=== PATIENT | male | born 1970 | race Caucasian/White ===

== ENCOUNTER 2018-10-26 13:06 | Observation (INO) ==
[2018-10-26] MEDS ORDERED: GLUCAGON SUBQ ONE ×2 (13:13→15:28)
--- NOTE | 2018-10-26 13:21 | PROVIDER DOCUMENTATION ---
HPI-General Adult - General Chief Complaint: Foreign Body/Throat Stated Complaint: FOREIGN OBJECT THROAT Time Seen by Provider: 10/26/18 13:12 Source: patient Allergies/Adverse Reactions: Patient Allergies Allergy/AdvReac Type Severity Reaction Status Date / Time No Known Allergies Allergy Verified 10/26/18 13:43 Home Medications: Home Medication List Medication Instructions Recorded Confirmed Last Taken Type NK [No Home Medications] 10/26/18 10/26/18 Unknown History - History of Present Illness -Gen Adult Nature of Presenting Problems: 48yom present to ER with c/o possible food bolus. Pt states he was eating a steak about 15 min [employer] and felt it get stuck in his throat. Pt spitting at bedside. States he has vomited. Denies abd pain or SOB. Location of Pain/Injury: reports: none Onset/Duration: reports: 1/2 hour ago Timing: reports: still present Associated Symptoms: reports: nausea, vomiting. denies: chest pain, diaphoresis, fever/chills, shortness of breath Review of Systems - Adult - REVIEW OF SYSTEMS - ADULT Constitutional: reports: no symptoms reported Eyes: reports: no symptoms reported Ears, Nose, Mouth & Throat: reports: no symptoms reported Cardiovascular: reports: no symptoms reported. denies: chest pain Respiratory: reports: no symptoms reported. denies: cough, shortness of breath Gastrointestinal: reports: see HPI, difficulty swallowing, nausea, vomiting Genitourinary: reports: no symptoms reported Musculoskeletal: reports: no symptoms reported Integumentary: reports: no symptoms reported Neurological: reports: no symptoms reported Psychiatric: reports: no symptoms reported Endocrine: reports: no symptoms reported Hematologic/Lymphatic: reports: no symptoms reported Allergic/Immunologic: reports: no symptoms reported All Other Systems: Reviewed and Negative Past History - Adult - PAST MEDICAL HISTORY-ADULT Review of Records: reports: Old Records Reviewed, Nursing Assessment Review, Medications Reviewed, Social history reviewed & non-contributory. Major Childhood Illnesses: reports: denies history Cardiovascular: reports: denies history Respiratory: reports: denies history Gastrointestinal: reports: denies history Obstetrical/Gynecological: reports: denies history Genitourinary: reports: denies history Musculoskeletal: reports: denies history Neurological: reports: denies history Endocrine/Immune: reports: denies history Other Conditions: reports: denies history Physical Exam-General - PHYSICAL EXAM-ADULT Initial Vital Signs Reviewed: Yes - CONSTITUTIONAL General Appearance: appears well, alert, no apparent distress - HEAD, EARS, NOSE, MOUTH & THROAT HENMT: moist mucous membranes, normal ENT inspection, pharynx normal. negative: angioedema - NECK Neck: full range of motion, supple, normal inspection - RESPIRATORY Respiratory: lungs clear, normal breath sounds, no respiratory distress, no accessory muscle use. negative: wheezing, retractions - CARDIOVASCULAR Cardiovascular: regular rate, rhythm - GASTROINTESTINAL (ABDOMEN) Abdominal Exam: normal bowel sounds, non tender, soft - MUSCULOSKELETAL Back Exam: normal inspection Extremity: normal range of motion, normal gait, normal inspection - SKIN Integumentary: normal color, warm/dry. negative: diaphoresis, jaundice - NEUROLOGIC Neurologic: grossly normal, no motor/sensory deficits - PSYCHIATRIC Psych/Mental Status: oriented x 3, anxious Progress - PLAN OF CARE/RESULTS Progress/Plan/Lab Results: Vital Signs - 8 hr 10/26/18 13:09 Temperature 99.0 F Pulse Rate 51 L Respiratory Rate 20 Blood Pressure 150/78 O2 Sat by Pulse Oximetry 98 Orders Category Date Time Status Glucagon Med 10/26/18 13:13 Discontinued 1 mg SUBQ NOW ONE - REASSESSMENT Reassessment #1 Time Reassessed: 14:10 (pt states he feels like the food bolus may have went down some but can still feel it. Denies SOB. Made aware will allow more time and try PO challenge, verbalized understanding) Reassessment #2 Time Reassessed: 15:06 (pt offered water, pt unable to swallow the water, vomits back up. Will page GI for consult) Reassessment #3 Time Reassessed: 16:59 (no relief from food bolus, will call hospitalist for admission) - XRAY 1 XRAY Study: Chest Impression: See EMR Report (FINDINGS: The upper airway appears to be patent. The lungs are grossly clear. There is no discrete pleural fluid collection or pneumothorax. The cardiomediastinal silhouette and central vasculature are grossly unremarkable. IMPRESSION: No evidence of acute pathology by plain radiograph. Electronically signed by Thiago Javier 10/26/2018 3:07 PM) - CONSULTS/PCP/HOSPITALIST Notification #1 *Consult/PCP/Hospitalist*: Boogie Time Discussed: 15:29 (instructs to give pt IV fluids and IV protonix, after getting 500mL give another dose of glucagon and nitro SL. If pt unable to pass, admit to [facility]. If pt passes, have pt f/u in his office tomorrow for esophageal stretch on Saturday) #2 Consult: Dr Chavira, hospitalist Time Discussed: 17:04 (admit to [facility] ) Consult Disposition: Admit Departure - Departure Date of Disposition Decision: 10/26/18 Time of Disposition Decision: 17:05 DIAGNOSIS: Esophageal obstruction due to food impaction Disposition: ADMITTED INPATIENT 09 Certified Medical Emergency: Emergent Condition: Stable Referrals and Follow-Ups: Mukesh Faria MD [Primary Care Provider] - - Critical Care Note This patient required my direct & personal management of CC.: No Attestation - Physician/ NEFTALI Attestation Patient care was provided by Advanced Practice Provider:: Yes Advanced Practice Provider:: Cecy March Advanced Practice Provider documentation review:: The Mid-level provider documentation, treatment plan and medical decision making was reviewed by the physician who agrees with all treatment and medical decision making by the MLP. The physician spent face to face time with patient:: No Advanced Practice Provider documentation review:: Supervising physician onsite and consulted in the evaluation and care of this patient. The physician did not have a face to face encounter with the patient.
[2018-10-26] MEDS ORDERED: DEMEROL IM ONE (13:27)
--- NOTE | 2018-10-26 15:09 | Diag Imaging Result Doc PS360 ---
EXAM: CHEST-PORTABLE INDICATION: possible food bolus TECHNIQUE: One view COMPARISON: 08/21/2013 FINDINGS: The upper airway appears to be patent. The lungs are grossly clear. There is no discrete pleural fluid collection or pneumothorax. The cardiomediastinal silhouette and central vasculature are grossly unremarkable. IMPRESSION: No evidence of acute pathology by plain radiograph. Electronically signed by Thiago Javier 10/26/2018 3:07 PM
[2018-10-26] MEDS ORDERED: PROTONIX IV ONE (15:25)
[2018-10-26] MEDS ORDERED: NS 1,000 ML IV ONE (15:25)
[2018-10-26] MEDS ORDERED: SODIUM CHLORIDE 0.9% INJ ONE ×2 (15:28→19:50)
[2018-10-26] MEDS ORDERED: NITROGLYCERIN SL ONE (15:30)
[2018-10-26] MEDS ORDERED: PROTONIX IV SCH (19:50)
[2018-10-26] MEDS ORDERED: ZOFRAN IV PRN (19:50)
[2018-10-26] MEDS ORDERED: MORPHINE IV PRN (19:50)
[2018-10-26 20:49] LABS: BASO# 0.04 X1000 (0.0-0.2); BASO% 0.3 % (0.0-0.8); EOS# 0.34 X1000 (0.0-0.7); EOS% 2.7 % (0.0-10.0); HEMOGLOBIN 13.2 g/dL (14.0-18.0); IMM GRAN# 0.03 X1000 (0.0-0.04); IMM GRAN% 0.2 % (0.0-0.5); LYMPH# 2.25 X1000 (1.2-3.4); LYMPH% 18.1 % (20.5-51.1); MCH 30.2 PG (27-31); MCHC 34.7 g/dL (33-37); MONO# 0.67 X1000 (0.11-0.59); MONO% 5.4 % (1.7-9.3); MPV 9.2 FL (7.4-10.4); NEUT# 9.12 X1000 (1.4-6.5); NEUT% 73.3 % (42.2-75.2); PLT 238 X1000 (130-400); RBC 4.37 XMIL (4.7-6.1); RDW 13.1 % (11.5-14.5); WBC 12.45 X1000 (4.8-10.8)
[2018-10-26 21:11] LABS: AGAP 11; ALB/GLOB RATIO 1.8; ALBUMIN 4.2 g/dL (3.5-5.0); ALKALINE PHOSPHATASE 71 U/L (32-122); BUN 15 mg/dL (8-22); CALCIUM 7.7 mg/dL (8.8-10.2); CHLORIDE 108 mmol/L (98-107); COSMO 284; CREATININE 0.9 mg/dL (0.7-1.2); ESTIMATED GFR > 60; GLUCOSE 93 mg/dL (70-104); GOT 27 U/L (10-34); GPT 30 U/L (10-44); POTASSIUM 3.8 mmol/L (3.5-5.1); SODIUM 142 mmol/L (136-145); TCO2 23 mmol/L (25-35); TOTAL BILIRUBIN 0.32 mg/dL (0.20-1.00); TOTAL PROTEIN 6.5 g/dL (6.3-8.3)
[2018-10-26] MEDS: NS 1,000 ML IV SCH (21:50)
--- NOTE | 2018-10-26 21:51 | HISTORY AND PHYSICAL ---
CHIEF COMPLAINT: Vomiting. HISTORY OF PRESENT ILLNESS: The patient is a 48-year-old male who presented to the hospital stating that he had eaten steak earlier and felt as though he has food got stuck. Started having intense pain, vomiting and spitting up at bedside. Stated he tried at home to drink liquids and could not each time it made him vomit. He called ambulance and brought him to the hospital. Just a very short period time ago he states that he had a very violent episode of vomiting and he actually feels a lot better. States he has taken a couple of sips of liquid and has been able keep that down without any pain. He does note this has been going on off and on for the past 3 months, seems to be getting worse. Does typically cough or have the sensation has got hung if he eats too fast. Never has issues with liquids. ALLERGIES: No known drug allergies. MEDICATIONS: No current medications. PAST MEDICAL HISTORY: He has no current active medical problems although he has been told in past that he had hypoglycemia and has been turned down for some type of insurance due to hyperglycemia. FAMILY HISTORY: Positive diabetes. SOCIAL HISTORY: He is . Does not smoke or drink on any regular basis. PHYSICAL: Temperature 99, pulse 51, respiratory 20, BP 150/78, saturating 98% on room air.General: Patient is awake, alert, currently in no respiratory distress, very pleasant to talk with sitting up in the bed. HEENT: Normocephalic. Neck: Supple. CV: Regular rate. Chest: Clear, nonlabored. Abdomen: Soft, nontender. Extremities: Moves all extremities. Neuro: No focal neurological changes. Skin: Warm, dry, no rashes. LABS: WBCs 12, glucose 93, calcium 7.7. Chest x-ray clear. ASSESSMENT: 1. Dysphagia with a likely food bolus. Although it appears though the food bolus has evacuated itself with his recent violent emesis episode. 2. Hyperglycemia although currently blood sugars are stable. PLAN: We are going to admit patient the hospital. Given that this has gone on several times and he had such a significant episode this time, do feel as though he is going to need to have an EGD. Will consult GI and will follow. Will admit him the hospital, IV fluids, pain control as needed. cc: Rudy Garner MD
[2018-10-27 07:23] LABS: AGAP 10; BUN 10 mg/dL (8-22); CALCIUM 7.9 mg/dL (8.8-10.2); CHLORIDE 111 mmol/L (98-107); COSMO 287; CREATININE 0.9 mg/dL (0.7-1.2); ESTIMATED GFR > 60; GLUCOSE 94 mg/dL (70-104); POTASSIUM 3.9 mmol/L (3.5-5.1); SODIUM 145 mmol/L (136-145); TCO2 24 mmol/L (25-35)
[2018-10-27 07:26] LABS: BASO# 0.05 X1000 (0.0-0.2); BASO% 0.6 % (0.0-0.8); EOS# 0.42 X1000 (0.0-0.7); EOS% 4.9 % (0.0-10.0); HEMATOCRIT 37.9 % (42.0-52.0); HEMOGLOBIN 12.7 g/dL (14.0-18.0); IMM GRAN# 0.02 X1000 (0.0-0.04); IMM GRAN% 0.2 % (0.0-0.5); LYMPH# 2.79 X1000 (1.2-3.4); LYMPH% 32.8 % (20.5-51.1); MCH 29.4 PG (27-31); MCHC 33.5 g/dL (33-37); MCV 87.7 FL (81-99); MONO# 0.53 X1000 (0.11-0.59); MONO% 6.2 % (1.7-9.3); MPV 9.6 FL (7.4-10.4); NEUT# 4.69 X1000 (1.4-6.5); NEUT% 55.3 % (42.2-75.2); PLT 230 X1000 (130-400); RBC 4.32 XMIL (4.7-6.1); RDW 13.1 % (11.5-14.5)
[2018-10-27] MEDS: NS 1,000 ML IV SCH (07:52)
[2018-10-27 08:19] LABS: INR 1.15; PROTIME 14.9 Seconds (11.0-16.0)
[2018-10-27 08:20] LABS: PTT 31.6 Seconds (22.3-41.8)
--- NOTE | 2018-10-27 08:27 | PROGRESS NOTE ---
DATE: 10/27/2018 SUBJECTIVE: This patient is resting comfortably in bed. Hopefully, he will have an endoscopy done today. Gastroenterology department has been consulted. OBJECTIVE: Vital Signs: Temperature 98 degrees, pulse 58, respiratory rate 20, blood pressure 111/67, oxygen saturation 99 on room air. HEENT: Head normocephalic. No trauma. PERRLA. Neck: Supple. No JVD. No masses. Central trachea. Chest: Clear to auscultation. No wheezing. No rales. Abdomen: Soft, nontender, nondistended. No hepatosplenomegaly. Extremities: No edema, no clubbing, no cyanosis. Neurological Examination: The patient is alert. He is oriented x3. No focal deficits. Laboratory: WBC 8.5, hemoglobin 12.7, hematocrit 37.9, platelets 230,000. Sodium 145, potassium 3.9, chloride 111, bicarbonate 24, BUN 10, creatinine 0.9, glucose 94, calcium 7.9. ASSESSMENT AND PLAN: 1. Dysphagia. Hopefully, he will had an esophagogastroduodenoscopy done today. He is nothing per oral. He has been placed on fluids. We will continue with the same management. As per the patient, this has been happening before but nothing like yesterday. I will wait for recommendations. 2. Apparently, he has been having episodes of hyperglycemia in the past. At this moment, the blood sugar is normal. cc: Yon Aggarwal MD
[2018-10-27] MEDS ORDERED: DIPRIVAN 1% ONE (08:44)
[2018-10-27] MEDS ORDERED: XYLOCAINE-MPF 2% ONE (08:45)
[2018-10-27] MEDS ORDERED: FENTANYL ONE (08:46)
--- NOTE | 2018-10-27 12:45 | ENDOSCOPY OPERATIVE NOTE ---
[facility] ENDOSCOPY OPERATIVE NOTE , PATIENT: Miguelito Christian ADMISSION DATE: MR#: [id number] : 1970 EGD PROCEDURE REPORT PROCEDURE DATE: 10/27/2018 SURGEON: Ajit Boogie MD STATUS: inpatient [employer]: Katarzyna Miller and Sudarshan Morales PREOPERATIVE DIAGNOSIS: The patient is a 48 yr old male here for an EGD due to dysphagia, pharyngeal -esophageal and foreign body removal from esophagus. PROCEDURE PERFORMED: EGD w/ biopsy MEDICATIONS: Per Anesthesia TOPICAL ANESTHETIC: none CONSENT: The patient understands the risks and benefits of the procedure and understands that these r isks include, but are not limited to: sedation, allergic reaction, infection, perforation and/or bleeding. Alternative means of evaluation and treatment include, among others: physical exam, x-rays, and/or surgical intervention. The patient elects to proceed with this endoscopic procedure. HISORY AND PHYSICAL: 10/27/2018 function. Hand hygiene and appropriate measures for infection prevention was taken. After the risks, benefits and alternatives of the procedure were thoroughly explained, Informed consent was verified, confirmed and timeout was successfully executed by the treatment team. The patient was anesthetized with topical anesthesia and the endoscope was introduced through the mouth and advanced to the second portion of the duodenum. Retroflexion wa s performed in the stomach and revealed no abnormalities. The gastroscope was then slowly withdrawn and removed. ESOPHAGUS: Esophagitis was found in the proximal esophagus and distal esophagus. Esophagitis was LA Class B: One or more mucosal breaks > 5mm, but without continuity across mucosal folds. A 2 cm hiatal hernia was no beverly. STOMACH: Mild non-erosive gastritis (inflammation) was found in the gastric body and gastric antrum. Multiple biopsies were performed using cold forceps. Sample sent for histology. DUODENUM: Mild duodenal inflammation was found in the duodenal bulb. The duodenal mucosa showed no abnormalities in the 2nd part of the duodenum. SPECIMENS REMOVED: Yes ADVERSE EVENTS: There were no complications. POSTOPERATIVE DIAGNOSIS: 1. Esophagitis in the proximal esophagus and distal esophagus 2. 2 cm hiatal hernia 3. Non-erosive gastritis (inflammation) was found in the gastric body and gastric antrum; multiple b iopsies were performed 4. Duodenal inflammation was found in the duodenal bulb 5. The duodenal mucosa showed no abnormalities in the 2nd part of the duodenum RECOMMENDATIONS: 1. Follow-up biopsy results in 2 weeks 2. Continue PPI daily - 30 mins before a meal 3. Liquid diet for 1 day and then advance to soft diet for now. RTC 2 weeks to schedule for Esophag eal dilation. 4. Begin an anti-reflux lifestyle: avoid acidic foods and drinks (like coffee and soda), do not lie down three hours after eating, elevate the head of your bed 6 to 9 inches, stop smokiing and reduce weight if needed. REPEAT EXAM: Ajit Boogie MD eSigned: Ajit Boogie MD 10/27/2018 1:44 PM cc: PATIENT NAME: Miguelito Christian MR#: [id number]
[2018-10-27] MEDS ORDERED: SODIUM CHLORIDE 0.9% 10 ML ONE (16:40)
[2018-10-27 17:48] VITALS: BP 122/73
--- NOTE | 2018-10-28 12:26 | DISCHARGE SUMMARY ---
ADMISSION DATE: 10/26/2018 DISCHARGE DATE: 10/27/2018 DISCHARGE DIAGNOSES: 1. Initially admitted due to food impaction/dysphagia. 2. Hyperglycemia although currently blood sugars were stable. 3. Esophagitis, gastritis, and duodenitis. HOSPITAL COURSE: A 48-year-old male admitted on 10/26/2018, and presented to the hospital stating that he had eaten steak earlier, and felt as though his food was stuck. He started having intensive pain, vomiting, and spitting up at the bedside. He tried to drink some liquids, and could not keep them down. He called the ambulance and brought him to the hospital. For a very short period of time during this admission, he states that he had a very violent episode of vomiting. He actually felt a lot better afterwards. He states that he took a couple of sips of liquid and has been able to keep that down without any pain, but he did notice that he has been having some kind of trouble swallowing going on for the past 3 months. He seems to be getting worse. Typically, he is coughing or having the sensation in his esophagus. He never had issues with liquids. He was admitted, and he was taking for endoscopy today that showed an esophagitis in the proximal esophagus and distal esophagus, a 2 cm hiatal hernia. Nonerosive gastritis was found in the gastric body and gastric antrum. Multiple biopsies were performed. Duodenal inflammation was found in the duodenal bulb, and the duodenal mucous showed no abnormalities in the second part of the duodenum. They have recommended to continue with PPIs 30 minutes before meals for 3 months. Also, they started a liquid diet for at least one day, and advanced to a soft diet for now. He needs to go back to the outpatient clinic to schedule for esophageal dilation. He needs to start anti reflux lifestyle. He needs to avoid acidic food and drinks like coffee and soda. Do not lie down 3 hours after eating and elevate the head of the bed at least 6 to 9 inches. He is not smoking, and he does not look overweight. After the procedure, he is feeling much better. He is tolerating p.o. He is ambulating. Family members at the bedside. He will be discharged today and follow up with Dr. Boogie in 2 weeks. PHYSICAL EXAMINATION: Temperature 97.6 degrees, pulse 50, respiratory rate 20, blood pressure 112/73, and oxygen saturation 98 percent on room air. HEENT: Head normocephalic. No trauma. PERRLA. Neck: Supple. No JVD. No masses. Central trachea. Chest: Clear to auscultation. No wheezing. No rales. Abdomen: Soft, nontender, and nondistended. No hepatosplenomegaly. Extremities: No edema. No clubbing. No cyanosis. Neurological: The patient is alert. He is oriented x3. No focal deficits. LABORATORY: WBC 8.5, hemoglobin 12.7, hematocrit 37.9, and platelets 230,000. Sodium 145, potassium 3.9, chloride 111, bicarbonate 24, BUN 10, creatinine 0.9 glucose 94 and calcium 7.9. DISCHARGE MEDICATIONS: Pantoprazole 40 mg p.o. daily. FOLLOWUP: Follow up with Dr. Boogie in 2 weeks. cc: Yon Aggarwal MD
== END 2018-10-27 18:45 | disposition home or self-care (01) ==
LOC: 4N 13:06 → P.ED 13:06 → SUATTDRO 13:07
PROVIDERS: ATTEND Internal Medicine